=== PATIENT | female | born 2005 | race Caucasian/White ===

== ENCOUNTER → 2024-08-27 12:21 | Outpatient (REF) | payer OTHER, SELFPAY | LOC: RAD 12:21 | PROVIDERS: ATTENDING PHYSICIAN Physician Assistant Medical | DX: J11.1 Influenza due to unidentified influenza virus with other respiratory manifestations (principal); R05.1 Acute cough | CPT/HCPCS: 71046 ==

== ENCOUNTER 2024-09-06 00:51 | Emergency (ER) | payer OTHER, SELFPAY ==
[2024-09-06 01:03] VITALS: BP 132/91
[2024-09-06 01:27] LABS: % Basophils 0.4 % (0-2); % Eosinophils 1.2 % (0-6); % Immature Granulocytes 1.1 % (0-0.5); % Lymphocytes 31.5 % (20.5-51.1); % Monocytes 9.3 % (1.7-9.3); % Neutrophils 56.5 % (42.2-75.2); Absolute Basophils 0.1 10^3/uL (0-0.2); Absolute Eosinophils 0.2 10^3/uL (0-0.7); Absolute Immature Granulocytes 0.2 10^3/uL (0-0.05); Absolute Lymphocytes 4.4 10^3/uL (1.2-3.4); Absolute Monocytes 1.3 10^3/uL (0.1-0.6); Hemoglobin 14.7 g/dL (12.0-16.0); Mean Corpuscular Hgb 32.2 pg (27.0-31.0); Mean Corpuscular Volume 92.1 fL (81.0-99.0); Mean Platelet Volume 9.2 fL (7.4-10.4); Nucleated Red Blood Cells % 0 %; Platelet Count 422 10^3/uL (130-400); Red Blood Cell Count 4.56 10^6/uL (4.20-5.40); Red Cell Dist. Width 11.1 % (11.5-14.5); White Blood Cell Count 14.1 10^3/uL (4.8-10.8)
[2024-09-06 01:36] VITALS: BP 131/73
[2024-09-06 01:42] VITALS: BMI 24.1
[2024-09-06 01:44] LABS: ALT (SGPT) 22 U/L (0-35); AST (SGOT) 23 U/L (14-36); Albumin 4.7 g/dl (3.5-5.0); Alkaline Phosphatase 42 U/L (38-126); Blood Urea Nitrogen 21 mg/dl (7-17); Calcium 9.3 mg/dl (8.4-10.2); Carbon Dioxide 25 mmol/L (22-30); Chloride 104 mmol/L (98-107); Estimated Creatinine Clearance > 125 ml/min; Glucose 101 mg/dl (70-99); Potassium 4.3 mmol/L (3.5-5.1); Sodium 142 mmol/L (135-145); Total Bilirubin 0.4 mg/dl (0.2-1.3); Total Protein 7.3 g/dl (6.3-8.2); eGFR > 60.00
--- NOTE | 2024-09-06 01:46 | ED.GENMED ---
History of Present Illness
General
Chief Complaint: Heart Rate Problem
Time Seen by Provider: 09/06/24 01:31
History of Present Illness
History of Present Illness:
19-year-old female with no significant past medical history presents to the emergency department for evaluation of sudden onset of chest discomfort associated with a fast heart rate beginning this evening while watching the [employer] hockey
game. She notes that she was treated last week for influenza pneumonia, states she did have a chest x-ray showing pneumonia. Was treated with azithromycin and Tamiflu. Last dose of these medications was 5 days ago. Denies any continued cough or
shortness of breath but does have pleuritic chest pain. No recent prolonged immobilization or travel, no leg swelling or calf cramping, does not take any oral contraceptives.
Past History
Past History
ED Past Medical History: None
ED Past Surgical History: None
Patient has exhibited threatening behavior?: No
Social History
Tobacco: Non-smoker
Alcohol: None
Drug: None
Personal: Single
Review of Systems
Review of Systems
Allergies reviewed?: Yes
All Other Systems: ROS reviewed and negative except as documented in HPI and ROS
Phy Exam
Physical Exam
Physical Exam:
GEN: Well appearing, NAD, WDWN
Eyes: PERRLA, EOMs intact, no scleral icterus
HENT: NCAT, oral mucosa moist, no JVD, no cervical adenopathy.
Lungs: CTAB, no wheezes, rales, rhonchi, normal chest wall excursion
Cardiac: Tachycardic, regular, no murmur, no peripheral edema
Neuro: AO x 3
MSK: No gross deformity or ecchymosis. No edema. No digital clubbing
Skin: No rashes, petechiae. Normal color, no pallor or jaundice.
Psych: Calm, cooperative, proper hygiene
Course
Orders/Labs/Results
Orders:
Orders
09/06/24 01:08
Electrocardiogram (*1) Urgent
Reason for Study: Tachycardia
EKG- Treatment ONCE
Test Result ONCE
09/06/24 01:16
C-Reactive Protein Urgent
Comment: ADD ON
Complete Blood Count/With Diff Urgent
Comprehensive Metabolic Panel Urgent
HCG, Serum Qualitative Screen Urgent
09/06/24 01:46
Add On- LAB Urgent
Tests Added?: CRP
09/06/24 01:55
D-Dimer Urgent
Troponin I Urgent
09/06/24 02:01
Acetaminophen [Tylenol] 650 mg PO NOW STA
09/06/24 02:30
CR Chest - 2 Views Urgent
Comment:
Reason For Exam: chest pain
09/06/24 02:35
Electrocardiogram (*1) Urgent
Reason for Study: Chest Pain
Ketorolac [Toradol] 15 mg IV NOW STA
09/06/24 02:36
EKG- Treatment ONCE
09/06/24 03:30
Electrocardiogram (*1) Urgent
Reason for Study: QTc Monitoring
Other Reason for Exam: Repeat
Abnormal Lab Results
09/06/24
01:16
WBC 14.1 H 10^3/uL
(4.8-10.8)
MCH 32.2 H pg
(27.0-31.0)
RDW 11.1 L %
(11.5-14.5)
Plt Count 422 H 10^3/uL
(130-400)
Abs Immat Gran (auto) 0.2 H 10^3/uL
(0-0.05)
Absolute Neuts (auto) 8.0 H 10^3/uL
(1.4-6.5)
Absolute Lymphs (auto) 4.4 H 10^3/uL
(1.2-3.4)
Absolute Monos (auto) 1.3 H 10^3/uL
(0.1-0.6)
Immature Gran % 1.1 H %
(0-0.5)
BUN 21 H mg/dl
(7-17)
Glucose 101 H mg/dl
(70-99)
09/06/24 01:16
09/06/24 01:16
Vital Signs
Initial and Last Documented VS:
Initial Vital Signs
Temp Pulse Resp BP Pulse Ox
98.1 F 117 14 132/91 97
09/06/24 01:03 09/06/24 01:03 09/06/24 01:03 09/06/24 01:03 09/06/24 01:03
Last Documented Vital Signs
Temp Pulse Resp BP Pulse Ox
99.1 F 110 21 113/70 97
09/06/24 02:00 09/06/24 02:30 09/06/24 02:30 09/06/24 02:00 09/06/24 02:30
MDM/Problems Addressed
MDM/Problems Addressed:
Unclear etiology to the patient's sinus tachycardia. Her labs are certainly reassuring although mild leukocytosis is likely a stress response. Negative D-dimer is reassuring against PE, negative CRP is reassuring against pericarditis or
myocarditis. Unclear cause, heart rate did gradually downtrend however stabilized in the 110 range. Repeat EKG shows normal QT interval, I suspect this was artifactual in the initial EKG. Discharged in stable condition
*Critical Care Note
Total Time (30-74mins, 75-104mins- exclusive of procedures): Not Applicable
ED Attending Note
-
Portions of this chart may have been created with voice recognition software.� Occasional wrong word or��sound alike� substitutions may have occurred due to the inherent limitations of voice recognition software.
Discharge Plan
Departure
Patient Disposition: Home (Routine Discharge)
Date of Disposition: 09/06/24
Time of Disposition: 03:15
Patient with high blood pressure during this ER visit?: No
Discharge Problem:
Sinus tachycardia
Instructions: Sinus Tachycardia (DC)
Prescriptions:
No Action
No Current Medications
0
Referrals:
Leelee Valle PA-C [Family Provider] -
Stand Alone Forms: Back to School
Activity Restrictions/Additional Instructions:
The cause of your symptoms is not clear, however your lab tests and chest X ray were reassuring
Please follow up with your primary care physician if symptoms persist
Interventions
Interventions:
*Risk Screen - Suicide Last Done: 09/06/24 01:03
*General Assessment Last Done: 09/06/24 01:43
*Neglect/Abuse Screening Last Done: 09/06/24 01:43
ED- Fall Risk Assessment Last Done: 09/06/24 01:43
*ED COVID-19 Vaccine History Last Done: 09/06/24 01:43
ED- Cardiac Assessment Last Done: 09/06/24 02:16
ED- Pulmonary Assessment Last Done: 09/06/24 02:16
Discharge Date and Time
Print Language: [id number]
[2024-09-06 01:50] LABS: HCG, Serum Qualitative Screen Negative
[2024-09-06 02:00] VITALS: BP 113/70
[2024-09-06] MEDS: TYLENOL 650 MG PO (02:03)
[2024-09-06 02:15] LABS: C-Reactive Protein < 5.00 mg/L (0.0-10.00)
[2024-09-06 02:18] LABS: D-Dimer < 0.27 ug/mlFEU (0.00-0.50)
[2024-09-06 02:30] LABS: Troponin I < 0.012 ng/ml
[2024-09-06] MEDS: TORADOL 15 MG IV (02:52)
[2024-09-06 03:00] VITALS: BP 105/61
== END 2024-09-06 03:35 | disposition home or self-care (01) ==
LOC: EMR 00:51
PROVIDERS: Physician Assistant; EMERGENCY PHYSICIAN Student in an Organized Health Care Education/Training Program; FAMILY PHYSICIAN Physician Assistant Medical
DX: R00.0 Tachycardia, unspecified (principal)
CPT/HCPCS: 99285; 96374; 71046; 80053; 84484; 84703; 85025; 85379; 86140; 93005